=== PATIENT | male | born 1965 | race Caucasian/White ===

== ENCOUNTER 2017-04-23 16:42 | Emergency (ER) | payer MEDICARE ==
[2017-04-23 17:59] LABS: Hematocrit 38.9 % (42.0-52.0); Hemoglobin 13.2 gm/dL (13.5-18.0); Mean Cell Volume 90.9 fl (78-100); Mean Corpuscular Hemoglobin 30.8 pg (27-31); Mean Corpuscular Hgb Conc 33.9 g/dl (32-36); Mean Platelet Volume 9.5 fl (6.0-9.5); Neutrophil # 5.4 K/mm3 (1.3-6.0); Neutrophil % 55.1 % (42-75.0); Platelet Count 288 K/mm3 (150-450); Red Blood Count 4.28 M/mm3 (4.7-6.0); Red Cell Distribution Width 13.3 % (11.5-14.0); White Blood Count 9.7 K/mm3 (4.0-10.5)
[2017-04-23 18:14] LABS: Urine Bilirubin Negative (NEGATIVE); Urine Blood Negative /ul (NEGATIVE); Urine Ketone Negative (NEGATIVE); Urine Nitrite Negative (NEGATIVE); Urine Protein Negative (NEGATIVE); Urine Specific Gravity 1.025 SP.GR. (1.005-1.030); Urine Urobilinogen Normal (NORMAL); Urine pH 6.5 pH (5.0-7.0)
[2017-04-23 18:14] LABS: ALT 37 U/L (19-67); AST 8 U/L (0-48); Albumin * 3.9 gm/dl (3.4-5.0); Alkaline Phosphatase * 80 U/L (50-170); Anion Gap 12.5 mmol/L (6.8-13.8); Bilirubin, Total 0.2 mg/dL (0.0-1.1); Blood Urea Nitrogen 21 mg/dL (6-23); Ca. Corrected For Albumin 8.6 mg/dL (8.4-10.2); Calcium * 8.8 mg/dL (7.9-10.9); Carbon Dioxide 27.1 mmol/L (24-32.6); Chloride 107 mmol/L (97-106); Glucose * 189 mg/dL (70-110); Potassium 4.6 mmol/L (3.4-4.6); Sodium 142 mmol/L (132-142); Total Protein 7.5 gm/dL (6.2-8.2)
--- NOTE | 2017-04-23 18:26 | ERNOTE ---
Medical Problem HPI - Narrative Date of Service: 04/23/17 - General Chief Complaint: Diabetes Related Problem Time Seen by Provider: 04/23/17 17:40 Source: patient Exam Limitations: no limitations - Immun/Allergies/Home Medications Immunizations: IMMUNIZATION HX Immunizations Up to Date Yes History of Influenza Vaccine Yes Hx Pneumococcal Vaccination Yes Allergies/Adverse Reactions: Allergies Penicillins Allergy (Verified 04/23/17 17:05) Home Medications: HOME MEDICATIONS Atorvastatin Calcium [Lipitor] 40 mg PO DAILY 04/23/17 [Last Taken Unknown] Fenofibrate 160 mg PO DAILY 04/23/17 [Last Taken Unknown] Lisinopril [Zestril] 10 mg PO DAILY 04/23/17 [Last Taken Unknown] Omeprazole 20 mg PO DAILY 04/23/17 [Last Taken Unknown] glipiZIDE [Glucotrol Xl] 2.5 mg PO DAILY 04/23/17 [Last Taken Unknown] metFORMIN HCL [Metformin HCl] 1,000 mg PO BID 04/23/17 [Last Taken Unknown] metFORMIN HCL [Metformin HCl] 1,000 mg PO BID #20 tablet 04/23/17 [Last Taken Unknown] - History of Present History Narrative: Patient presents to the ED for high blood sugar. He has been out of his metformin for 2 days. Has just moved to town and has an appointment next week with PCP but none right now to refill this. No CP or SOB. No other complaints whatsoever. No weakness, fever, cough, dizziness. Timing: intermittent Severity: mild Modifying Factors - (Improves): Present: other - nothing Modifying Factors - (Worsens): Present: other - nothing Review of Systems - Review of Systems Constitutional: Absent: fever EYE: Absent: vision changes ENT: Absent: sore throat Respiratory: Absent: shortness of breath Cardiology: Absent: chest pain Gastrointestinal/Abdominal: Absent: abdominal pain Genitourinary: Absent: dysuria Skin: Absent: rash Neurological: Absent: weakness - Patient's Past Medical History Patient History - Medical: Diabetes Type 2 Patient History - Cardiac/Respiratory: Hypertension, Hyperlipidemia Patient History - Cancer: No Hx of Cancer Patient History - Surgical Procedures: No surgical history Patient History - Other: None - Social History Living Situations: other Abuse History: No History of abuse Psych History: No pertinent hx Smoking Status: Never smoker Have you smoked in the past 12 months: No Do you dip or chew tobacco: No Patient requests Smoking Cessation Consult: No Initiate information on Smoking Cessation: No Alcohol Use: none Drug Use: none - Immunizations Immunizations Up to Date: Yes Hx Pneumococcal Vaccination: Yes History of Influenza Vaccine: Yes Physical Exam - Physical Exam General Appearance: Present: alert, no apparent distress Head Exam: Present: normal inspection, no evidence of injury Eye Exam: Normal inspection: bilateral, PERRL: bilateral Ears, Nose, Throat: Present: normal ENT inspection Neck: Present: normal inspection Respiratory: Present: no respiratory distress, normal breath sounds, no accessory muscle use, lungs clear Cardiovascular/Chest: Present: regular rate, rhythm, normal peripheral pulses Gastrointestinal/Abdominal: Present: normal bowel sounds, nontender, nondistended, soft Back Exam: Present: normal range of motion Extremity Exam: Present: normal range of motion Neurological Exam: Present: alert, no motor/sensory deficits Skin Exam: Present: normal color, warm/dry ED Progress - Results and Orders Patient's Lab Results:: I have reviewed the patient's lab results. - Vital Signs Patient's Vital Signs:: I have reviewed the patient's vital signs. Vital Signs: Vital Signs 04/23/17 04/23/17 17:01 18:05 Temperature 36.8 C Pulse Rate 69 79 Respiratory 18 16 Rate Blood Pressure 173/78 162/67 O2 Sat by Pulse 99 98 Oximetry - Progress/Reassessment Chief Complaint: Diabetes Related Problem Progress Note-Subjective: 04/23/17 19:07 No signs of DKA. He is out of his home meds. Will refill home meds until re- check next week. no other acute life or limb threat noted. Departure Clinical Impression: Medication refill, Hyperglycemia - Departure Disposition: Home self-care Condition: Stable Instructions: Hyperglycemia, [id number] Additional Instructions: Rest. Fluids. Take your medications as directed. Keep your appointment next week with your primary doctor. Return if your condition worsens or changes in any way. Referrals: Terence Lowe DO [Primary Care Provider] - Prescriptions: metFORMIN HCL [Metformin HCl] 1,000 mg PO BID #20 tablet
[2017-04-23 18:47] LABS: Urine Appearance Clear; Urine Bacteria 1+; Urine Color Yellow; Urine RBC None Seen /hpf (0-5); Urine WBC None Seen /hpf (0-5)
[2017-04-23 19:01] VITALS: BP 148/89
== END 2017-04-23 19:34 | disposition home or self-care (01) ==
LOC: ER 16:42
DX: Z76.0 Encounter for issue of repeat prescription; R73.9 Hyperglycemia, unspecified; I10 Essential (primary) hypertension; E78.5 Hyperlipidemia, unspecified